=== PATIENT | female | born 1950 | race Caucasian/White ===

== ENCOUNTER 2023-01-06 12:11 | Day surgery (SDC) | payer MEDICARE ==
[~2023-01-06] VITALS: Ht 170.2 cm; Wt 95.3 kg
[2023-01-06] VITALS (10 sets, daily range): BP systolic 96–143; BP diastolic 62–99
[2023-01-06] MEDS ORDERED: LORazepam 0.5 MG tablet PO ONE (12:45)
[2023-01-06] MEDS ORDERED: normal saline 1000ml 1,000 ML IV SCH (12:45)
[2023-01-06] MEDS ORDERED: BENZ-111 PO (13:18)
[2023-01-06] MEDS ORDERED: EMPA10TA PO (13:18)
[2023-01-06] MEDS ORDERED: APIX5TAB3 PO (13:18)
[2023-01-06] MEDS ORDERED: FLUO-100 PO (13:18)
[2023-01-06] MEDS ORDERED: FURO40TA4 PO (13:18)
[2023-01-06] MEDS ORDERED: OMEP20TA23 PO (13:18)
[2023-01-06] MEDS ORDERED: BUDE10.2 INH (13:18)
[2023-01-06] MEDS ORDERED: POTA-206 PO (13:18)
[2023-01-06] MEDS ORDERED: ATOR20TA66 PO (13:18)
[2023-01-06] MEDS ORDERED: METO-411 PO (13:18)
[2023-01-06] MEDS ORDERED: DILT-94 PO (13:18)
[2023-01-06] MEDS ORDERED: fentaNYL/PF 50MCG/1 ML 2ML syringe ONE ×2 (14:02→15:27)
[2023-01-06] MEDS ORDERED: midazolam 1 mg/ML 2ml injection ONE (14:02)
[2023-01-06] MEDS ORDERED: LIDOcaine 1% 30ml preserv. free vial ONE (14:02)
[2023-01-06] MEDS ORDERED: iohexol 350MG/ML 100ml bottle IV ONE (14:02)
[2023-01-06] MEDS ORDERED: HYDROmorphone 1 mg/ml syringe ONE (15:24)
[2023-01-06] MEDS ORDERED: HYDROcodone/acetaminophen 5mg/325mg tablet PO PRN (16:50)
[2023-01-06] MEDS ORDERED: HYDROcodone/acetaminophen 10/325mg tab PO PRN (16:50)
[2023-01-07 07:11] LABS: ISTAT Hct MIX 34 %PCV (35-45); ISTAT O2 SATURATION MIX VENOUS 62 % (60-80); ISTAT SOURCE VEN
[2023-01-07] MEDS ORDERED: pneumococcal 23-VAL P-sac vacc 25 mcg/0.5ml vial IMVAC ONE (08:00)
== END 2023-01-06 19:00 | disposition home or self-care (01) ==
LOC: SSTAY O 12:11
PROVIDERS: ATTEND Student in an Organized Health Care Education/Training Program
DX: I50.9 Heart failure, unspecified (principal); F41.9 Anxiety disorder, unspecified; K21.9 Gastro-esophageal reflux disease without esophagitis; F32.A Depression, unspecified; J45.909 Unspecified asthma, uncomplicated; I48.91 Unspecified atrial fibrillation; E78.5 Hyperlipidemia, unspecified; M85.80 Other specified disorders of bone density and structure, unspecified site; Z85.828 Personal history of other malignant neoplasm of skin; Z79.899 Other long term (current) drug therapy; Z79.01 Long term (current) use of anticoagulants
CPT/HCPCS: 33289; 36415; 76937; 82803; 85014; 85610; 93005; 99152; 99153; C2624; J1644; J2250; J3010; J3490; J7030; Q9967; 90732; A6258; A6449; C1769; C1894; J1170